=== PATIENT | female | born 1980 | race Caucasian/White ===

== ENCOUNTER 2024-01-20 15:18 | Emergency (ER) | payer SELFPAY ==
[2024-01-20 15:24] VITALS: BP 150/74; PULSE 94; RESP 20; TEMP 35.8; O2SAT 96
--- NOTE | 2024-01-20 15:30 | DI.RAD_ITS ---
Exam(s) XR FOREARM LT XR WRIST LT COMPLETE EXAM: XR WRIST LT COMPLETE CLINICAL HISTORY: Postreduction. TECHNIQUE: 2D digital imaging was performed. Three views. COMPARISON: CR,XR XR FOREARM LT from 01/20/2024 CR,XR XR WRIST LT COMPLETE from 01/20/2024 FINDINGS: BONES: Comminuted intra-articular fracture of the distal radius is again noted. The degree of angula tion has improved. No change in ulnar styloid fracture. No bony destructive lesion is seen. JOINTS: The carpal bones are normally aligned. SOFT TISSUE: Swelling. IMPRESSION: Improvement in the alignment of the distal radial fracture. DATA REPOSITORY: RADIATION DOSE DELIVERED:
--- NOTE | 2024-01-20 15:35 | DI.RAD_ITS ---
Exam(s) XR WRIST LT COMPLETE EXAM: XR WRIST LT COMPLETE CLINICAL HISTORY: Fall/ trauma. TECHNIQUE: 2D digital imaging was performed. Three views of the wrist. Two views of the forearm.. COMPARISON: CR,XR XR FOREARM LT from 01/20/2024 FINDINGS: BONES: Comminuted intra-articular fracture of distal radius with significant dorsal angulation as wel l as impaction. Ulnar styloid fracture also seen. No bony destructive lesion is seen. JOINTS: The carpal bones are normally aligned. The elbow is unremarkable. SOFT TISSUE: Swelling. IMPRESSION: Comminuted intra-articular fracture of distal radius with dorsal angulation. DATA REPOSITORY: RADIATION DOSE DELIVERED:
--- NOTE | 2024-01-20 15:36 | ED.GENADUL_ITS ---
Discharge Plan Disposition Patient Disposition: Home Discharge Details Clinical Impression: Distal radius fracture, left Primary Care Provider: [place],Local ED Provider: Zeyad Campos Home Meds and New Rx's Prescriptions: No Action No Known Home Meds Discharge Instructions Instructions: Radius Fracture Additional Instructions: Please continue to take acetaminophen or [id number] pain medication as needed for discomfort. It is very important that you continue to monitor symptoms and if you have any significant worsening of numbness or tingling, discoloration of fingers, or worsening of your condition please go directly to [facility] and check into the emergency department. If the orthopedic team does not contact you tomorrow morning please call their office for arrangement of your follow-up appointment. Referrals: [facility] [Outside] (Please call the orthopedic office mid- morning for arrangement of follow-up appointment) HPI General Mode of arrival: ambulatory . Date/Time Provider Initiated Documentation: 01/20/24 15:31 . Limitations to Documentation: no limitations . Information obtained by: patient and RN notes reviewed . History of Present Illness 43 year old F presents to the emergency department with the chief complaint of Left wrist injury, described as moderate, Quality is described as sharp, and is localized to the left and upper extremity. Patient reports no radiation. Patient started experiencing this hour(s) (1) and it has been constant. Immobilization improves symptom(s), Movement worsens symptoms . Patient notes no other symptoms.. Patient did receive the following treatments prior to arrival, none Related Data Home Medications ?Medication ?Instructions ?Recorded ?Confirmed Unknown [No Known Home Meds] 01/20/24 01/20/24 Allergies Allergy/AdvReac Type Severity Reaction Status Date / Time No Known Allergies Allergy Unverified 01/20/24 15:26 General Stated Complaint: Orthopedic LEONARDO: 4 Review of Systems Constitutional Constitutional: Denies headache(s) ENT Ears, Nose, Mouth, and Throat: Denies headache(s) Cardiovascular Cardiovascular: Denies syncope Musculoskeletal Musculoskeletal: Reports as per HPI, Reports deformity, Reports arthralgias, Reports joint swelling and Reports limited range of motion Neurologic Neurologic: Denies syncope and Denies headache(s) Exam Const General: cooperative, no acute distress and not ill appearing Orientation: alert, awake and oriented x3 HENMT Mouth: moist mucous membranes Resp Effort & Inspection: normal respiratory effort, able to speak in complete sentences and no respiratory distress Cardio Rate: regular rate Rhythm: regular rhythm Pulses: radial pulses present Skin General skin exam: no rashes or lesions noted Neuro General: patient alert, patient awake, patient oriented x3, moves all extremities and no focal motor deficits Sensory Exam: no sensory deficits noted Extrem General: normal exam except as noted Left upper extremity: elbow/forearm Details: abnormal ROM Details: pain with active ROM Details: with pronation and with supination and wrist Details: tenderness Location: of the distal radius and of the distal ulna; not of the anatomic snuffbox, swelling Location: of the volar wrist, normal vascular exam and radial pulse present; no penetrating wound Course Vital Signs Vital signs: Vital Signs Temperature 35.8 C L 01/20/24 15:24 Pulse 94 H 01/20/24 15:24 Respiratory Rate 20 01/20/24 15:24 Blood Pressure 150/74 H 01/20/24 15:24 Pulse Oximetry 96 01/20/24 15:24 Temperature 35.8 C L 01/20/24 15:24 Pulse 94 H 01/20/24 15:24 Respiratory Rate 20 01/20/24 15:24 Respiratory Effort Normal, Non-Labored 01/20/24 15:34 Blood Pressure 150/74 H 01/20/24 15:24 Blood Pressure Position Sitting 01/20/24 15:24 Pulse Oximetry 96 01/20/24 15:24 Oxygen Delivery Method Room Air 01/20/24 15:24 Oxygen Flow Rate 0 01/20/24 15:24 Procedures Orthopedic Fracture Reduction Fracture #1: Time Out Performed: Yes Side: left Fracture Reduction Location: radius Analgesia: hematoma block Technique: direct manipulation, traction/counter-traction and finger traps Post Reduction X-rays Demonstrate: other (Partial reduction) Post-reduction neuro exam: intact Post-reduction vascular exam: intact Splint Applied: Yes Patient Tolerated Procedure: well and no complications Orthopedic Splinting/Casting Injury #1: Side: left Upper Extremity Injury Location: forearm Upper Extremity Immobilizer: sugartong splint Other Orthopedic Equipment: other (Sling) Medical Decision Making Patient presenting to the emergency department for chief complaint of left wrist injury. Patient states she was hiking and slipped and attempted to catch herself but injured her left wrist and FOOSH type injury. Patient denies any injury or trauma. Physical exam shows significant swelling to left volar wrist, decreased to no range of motion without significant pain and discomfort no findings noted above or below injury with otherwise noncontributory exam. Will plan on performing radiological imaging for evaluation of fracture versus sprain. Patient deferred pain medication pending results. Reviewed radiological imaging and results that show a distal radius fracture. Thorough discussion with patient of risk versus benefit of joint reduction along with options of procedural sedation versus hematoma block was discussed with patient. After full discussion shared decision making was utilized and hematoma block was performed under sterile condition. This was successful at providing appropriate level of anesthesia. I performed 2 attempts at joint reduction with mild success that was evaluated with portable postreduction films. Dr. Saint Lemon also assisted at reduction which we had moderate success but not full reduction was achieved. Did consult with [facility] as patient is from [facility] and visiting family and they live closer to [facility]. Spoke with Dr. Allen orthopedist on-call who reviewed images and stated that if CMS was intact distal to injury that patient could remain in splint and that they would follow-up with patient for reduction or surgical repair. Postprocedure patient did state some tingling in the radial nerve distribution. Patient had intact sensation to light touch along with cap refill. We did slightly loosen the splinting which ended up fully resolving patient's tingling sensation and helped with the discomfort of splinting. Given reduction of any concerning findings I do feel that patient is stable to allow splint to remain in place and to follow-up with [facility] on outpatient basis. Did give patient strict monitoring precautions along with return precautions which [facility] advised that she will go straight to their facility if she had any worsening of condition pending hearing from the orthopedic office. Did discuss pain control with patient and she stated that she only wanted to use acetaminophen for discomfort which I do feel that her pain tolerance was high and that that is appropriate. After discussion of diagnosis and plan of care patient has no further needs, questions, or concerns and states clear understanding to return to the emergency department for any worsening symptoms. This documentation was generated using [employer] system, please disregard any oddities of phrase or misspellings. Imaging Data Radiologic Study: Imaging: X-Ray Radiologist's impression: Exam(s) PROCEDURE INFORMATION: Exam: XR Left Forearm Exam date and time: 01/20/2024 4:04 PM Age: 43 years old Clinical indication: Other: Fall, trauma TECHNIQUE: Imaging protocol: Radiologic exam of the left forearm. Views: 2 views. COMPARISON: CR XR WRIST LT COMPLETE 01/20/2024 4:01 PM FINDINGS: Bones/joints: There is a comminuted, angulated (by approximately 45 degrees), displaced fracture of the distal radius appears to have intra-articular extension. There is also an ulnar styloid fracture. Soft tissues: Associated soft tissue swelling is seen. IMPRESSION: Fractures of the distal radius and ulna as described. Dictated and Authenticated by: Lydia Ayala MD. Radiologic Study #2: Imaging: X-Ray Radiologist's impression: Exam(s) PROCEDURE INFORMATION: Exam: XR Left Wrist Exam date and time: 01/20/2024 5:45 PM Age: 43 years old Clinical indication: Other: Post reduct TECHNIQUE: Imaging protocol: Radiologic exam of the left wrist. Views: 3 or more views. COMPARISON: CR XR WRIST LT COMPLETE 01/20/2024 4:01 PM FINDINGS: Bones/joints: Again seen is an angulated , intra-articular, comminuted fracture of the distal radius. When compared to prior examination, angulation has improved somewhat on the lateral radiograph but is not anatomic. An ulnar styloid fracture remains seen. Soft tissues: There is associated soft tissue swelling. IMPRESSION: 1. Again seen is an angulated , intra-articular, comminuted fracture of the distal radius. When compared to prior examination, angulation has improved somewhat on the lateral radiograph but is not anatomic. 2. An ulnar styloid fracture remains seen. 3. There is associated soft tissue swelling Dictated and Authenticated by: Lydia Ayala MD. Quality:SDOH Health Related Social Needs: No Data to Display PFSH All Active Problems (Updated 01/20/24 @ 20:39 by Zeyad Campos NP) Distal radius fracture, left (Acute) Social History Smoking/Tobacco Use Status: Unknown Smoking risk assessment performed?: Yes
--- NOTE | 2024-01-20 16:56 | DI.VRAD_ITS ---
PROCEDURE INFORMATION: Exam: XR Left Wrist Exam date and time: 01/20/2024 4:01 PM Age: 43 years old Clinical indication: Other: Fall trauma TECHNIQUE: Imaging protocol: Radiologic exam of the left wrist. Views: 3 or more views. COMPARISON: No relevant prior studies available. FINDINGS: Bones/joints: There is a comminuted, angulated (by approximately 45 degrees), displaced fracture of the distal radius appears to have intra-articular extension. There is also an ulnar styloid fracture. Soft tissues: Associated soft tissue swelling is seen. IMPRESSION: 1. Fractures of the distal radius and ulna as described. Dictated and Authenticated by: Lydia Ayala MD. Ordering:BILLIE Jeffers MD
--- NOTE | 2024-01-20 16:58 | DI.VRAD_ITS ---
PROCEDURE INFORMATION: Exam: XR Left Forearm Exam date and time: 01/20/2024 4:04 PM Age: 43 years old Clinical indication: Other: Fall, trauma TECHNIQUE: Imaging protocol: Radiologic exam of the left forearm. Views: 2 views. COMPARISON: CR XR WRIST LT COMPLETE 01/20/2024 4:01 PM FINDINGS: Bones/joints: There is a comminuted, angulated (by approximately 45 degrees), displaced fracture of the distal radius appears to have intra-articular extension. There is also an ulnar styloid fracture. Soft tissues: Associated soft tissue swelling is seen. IMPRESSION: Fractures of the distal radius and ulna as described. Dictated and Authenticated by: Lydia Ayala MD. Ordering:BILLIE Jeffers MD
[2024-01-20 18:40] VITALS: BP 140/74; PULSE 83; RESP 18; O2SAT 97
[2024-01-20] MEDS: Lidocaine 1% Multi-Dose 50 ML VIAL IJ (18:40)
--- NOTE | 2024-01-20 19:22 | DI.VRAD_ITS ---
PROCEDURE INFORMATION: Exam: XR Left Wrist Exam date and time: 01/20/2024 5:45 PM Age: 43 years old Clinical indication: Other: Post reduct TECHNIQUE: Imaging protocol: Radiologic exam of the left wrist. Views: 3 or more views. COMPARISON: CR XR WRIST LT COMPLETE 01/20/2024 4:01 PM FINDINGS: Bones/joints: Again seen is an angulated , intra-articular, comminuted fracture of the distal radius. When compared to prior examination, angulation has improved somewhat on the lateral radiograph but is not anatomic. An ulnar styloid fracture remains seen. Soft tissues: There is associated soft tissue swelling. IMPRESSION: 1. Again seen is an angulated , intra-articular, comminuted fracture of the distal radius. When compared to prior examination, angulation has improved somewhat on the lateral radiograph but is not anatomic. 2. An ulnar styloid fracture remains seen. 3. There is associated soft tissue swelling Dictated and Authenticated by: Lydia Ayala MD. Ordering:BILLIE Jeffers MD
[2024-01-20] MEDS: Acetaminophen 500 MG TAB 1000 MG PO (19:46)
[2024-01-20 20:46] VITALS: BP 132/72; PULSE 78; RESP 16; O2SAT 98
--- NOTE | 2024-01-22 09:36 | NUR.NOTE ---
Accessed Pt chart to obtain diagnosis and Providers name for the [facility] paperwork
== END 2024-01-20 20:45 | disposition home or self-care (01) ==
PROVIDERS: Emergency Provider Nurse Practitioner Family
DX: S52.352A Displaced comminuted fracture of shaft of radius, left arm, initial encounter for closed fracture (principal); S52.512A Displaced fracture of left radial styloid process, initial encounter for closed fracture; W01.10XA Fall on same level from slipping, tripping and stumbling with subsequent striking against unspecified object, initial encounter; Y93.01 Activity, walking, marching and hiking
CPT/HCPCS: 99284; 25605; 73090; 73110; 99283